=== PATIENT | male | born 1945 | race Caucasian/White ===

== ENCOUNTER 2019-06-03 20:19 | Emergency (ER) | payer MEDICARE, BC ==
--- NOTE | 2019-06-03 20:50 | ED ---
HPI Chest Pain - HPI Summary HPI Summary: The patient is a 74 y/o M presenting to [facility] with a chief complaint of sudden onset stabbing left anterior CP this afternoon. He reports that he was standing up when the pain suddenly began. The pain does not radiate. At time of onset, the pain was rated 7/10 in severity, but now the pain is rated 2/10. The pain is aggravated by deep breathing. He denies nausea, vomiting, diaphoresis, dizziness, and SOB. Hx of HTN, HLD, ND, angioplasty without stents. FHx of HTN and ND. Nonsmoker, occasional EtOH, no substance use. - History of Current Complaint Chief Complaint: EDChestPainROMI Time Seen by Provider: 06/03/19 20:37 Hx Obtained From: Patient Onset/Duration: Started Hours Ago, Still Present Timing: Lasting Hours Initial Severity: Moderate Current Severity: Mild Pain Intensity: 2 Pain Scale Used: 0-10 Numeric Chest Pain Location: Left Anterior Chest Pain Radiates: No Character: Sharp/Stabbing Aggravating Factor(s): Deep Breaths Alleviating Factor(s): Nothing Associated Signs and Symptoms: Positive: Chest Pain. Negative: Dizziness, Shortness of Breath, Diaphoresis, Nausea, Vomiting - Allergy/Home Medications Allergies/Adverse Reactions: Allergies Allergy/AdvReac Type Severity Reaction Status Date / Time No Known Allergies Allergy Verified 06/03/19 20:24 PMH/Surg Hx/FS Hx/Imm Hx Endocrine/Hematology History: Denies: Hx Diabetes Cardiovascular History: Reports: Hx Hypercholesterolemia, Hx Hypertension - Surgical History Surgery Procedure, Year, and Place: angioplasty without stents - Immunization History Date of Tetanus Vaccine: utd Date of Influenza Vaccine: fall 2017 Infectious Disease History: No Infectious Disease History: Denies: Traveled Outside the [place] in Last 30 Days - Family History Known Family History: Positive: Cardiac Disease - ND, Hypertension - Social History Alcohol Use: Rare Hx Substance Use: No Substance Use Type: Reports: None Hx Tobacco Use: No Smoking Status (MU): Never Smoked Tobacco Do You Chew or Dip Tobacco: No Have You Chewed or Dipped Tobacco in the LAST YEAR: No Have You Smoked in the Last Year: No Review of Systems Negative: Skin Diaphoresis Positive: Chest Pain - left anterior Negative: Shortness Of Breath Negative: Vomiting, Nausea Neurological: Other - NEGATIVE: dizziness All Other Systems Reviewed And Are Negative: Yes Physical Exam - Summary Physical Exam Summary: VITAL SIGNS: Reviewed. GENERAL: Patient is a well-developed and nourished male who is lying comfortable in the stretcher. Patient is not in any acute respiratory distress. HEAD AND FACE: No signs of trauma. No ecchymosis, hematomas or skull depressions. No sinus tenderness. EYES: PERRLA, EOMI x 2, No injected conjunctiva, no nystagmus. EARS: Hearing grossly intact. Ear canals and tympanic membranes are within normal limits. MOUTH: Oropharynx within normal limits. NECK: Supple, trachea is midline, no adenopathy, no JVD, no carotid bruit, no c- spine tenderness, neck with full ROM. CHEST: Symmetric. Reproducible chest pain with palpation. LUNGS: Clear to auscultation bilaterally. No wheezing or crackles. CVS: Regular rate and rhythm, S1 and S2 present, no murmurs or gallops appreciated. ABDOMEN: Soft, non-tender. No signs of distention. No rebound, no guarding, and no masses palpated. Bowel sounds are normal. EXTREMITIES: FROM in all major joints, no edema, no cyanosis or clubbing. NEURO: Alert and oriented x 3. No acute neurological deficits. Speech is normal and follows commands. SKIN: Dry and warm. Triage Information Reviewed: Yes Vital Signs On Initial Exam: Initial Vitals Temp Pulse Resp BP Pulse Ox 97.9 F 62 12 147/78 96 06/03/19 20:23 06/03/19 20:23 06/03/19 20:23 06/03/19 20:23 06/03/19 20:23 Vital Signs Reviewed: Yes Diagnostics - Vital Signs Vital Signs Temp Pulse Resp BP Pulse Ox 06/03/19 20:23 97.9 F 62 12 147/78 96 - Laboratory Result Diagrams: 06/03/19 21:10 06/03/19 21:10 Lab Statement: Any lab studies that have been ordered have been reviewed, and results considered in the medical decision making process. - Radiology CXR Radiology Interpretation Completed By: Radiologist Summary of Radiographic Findings: No acute pathology. ED physician has reviewed this report. - EKG 2021 Cardiac Rate: NL - 61 BPM EKG Rhythm: Sinus Rhythm Summary of EKG Findings: No ST elevations. Re-Evaluation - Re-Evaluation First Eval Re-Evaluation Time: 21:45 Comment: I discussed results thus far with the patient. He would like to go home. Chest Pain Course/Dx - Course Assessment/Plan: The patient is a 74 y/o M presenting to [facility] with a chief complaint of sudden onset stabbing left anterior CP this afternoon. He reports that he was standing up when the pain suddenly began. The pain does not radiate. At time of onset, the pain was rated 7/10 in severity, but now the pain is rated 2/10. The pain is aggravated by deep breathing. He denies nausea, vomiting, diaphoresis, dizziness, and SOB. Hx of HTN, HLD, ND, angioplasty without stents. FHx of HTN and ND. Nonsmoker, occasional EtOH, no substance use. Blood tests without any significant abnormality except for slight anemia, troponin of 0.01, and BNP of 133. Patient was given aspirin for the pain. The patients chest pain is sharp and is increased by deep inspiration. The EKG shows no ST elevations. Chest X-ray shows no acute pathology. The patients pain has resolved. Patient is asymptomatic. I wanted to wait for the second troponin after 4 hours; however, the patient doesnt want to wait and see reports since the pain is resolved he wants to be discharged home. Heart score is 3. He understands the benefits and risk of leaving now without the second troponin; however, the patient insists. He reports that if the pain returns, he will return to the emergency room for further workup and management. I discussed all the findings and test results with the patient. Patient was instructed to return to the emergency room immediately if any of the symptoms return worsens. Plan of care was discussed with the patient and understands and agrees. All questions were answered at patient satisfaction. There were no further complaints or concerns. Lung exam before discharge: CTA B/L. Good air exchange. No wheezing or crackles heard. CVS: S1 and S2 present. No murmurs appreciated. Patient is alert and oriented x 3. Patient is hemodynamically stable. Patient will be discharged home with follow up PCP in the next 2-3 days. - Diagnoses Provider Diagnoses: Atypical chest pain Discharge - Sign-Out/Discharge Documenting (check all that apply): Patient Departure - Patient will be discharged home. Patient Received Moderate/Deep Sedation with Procedure: No - Discharge Plan Condition: Stable Disposition: HOME Patient Education Materials: Chest Pain (DC) Referrals: Mamadou Elizondo MD [Primary Care Provider] - 3 Days Additional Instructions: Follow up with your primary care provider in 2-3 days. RETURN TO THE EMERGENCY DEPARTMENT FOR ANY NEW OR WORSENING SYMPTOMS. - Billing Disposition and Condition Condition: STABLE Disposition: Home - Attestation Statements Document Initiated by Chuyita: Yes Documenting Scribe: April Warren Provider For Whom Chuyita is Documenting (Include Credential): Dr. Abel Dickerson MD Scribe Attestation: April Winkler, scribed for Dr. Abel Dickerson MD on 06/03/19 at 2149. Scribe Documentation Reviewed: Yes Provider Attestation: The documentation as recorded by the April bernard accurately reflects the service I personally performed and the decisions made by me, Dr. Abel Dickerson MD Status of Scribe Document: Ready
[2019-06-03 21:17] LABS: ABS Basophils 0.1 10^3/ul (0-0.2); ABS Eosinophils 0.2 10^3/ul (0-0.6); ABS Lymphocytes 3.4 10^3/ul (1.0-4.8); ABS Monocytes 0.7 10^3/ul (0-0.8); ABS Neutrophils 3.4 10^3/ul (1.5-7.7); Eosinophil % 2.4 %; Hematocrit 39 % (42-52); Hemoglobin 13.4 g/dL (14.0-18.0); Lymphocyte % 43.1 %; Mean Corpuscular HGB Conc 34 g/dL (31-36); Mean Corpuscular Hemoglobin 32 pg (27-31); Mean Corpuscular Volume 92 fL (80-94); Mean Platelet Volume 7.7 fL (7.4-10.4); Platelet Count 145 10^3/uL (150-450); Red Blood Count 4.24 10^6 /uL (4.18-5.48); Red Cell Distribution Width 15 % (10-15); White Blood Count 7.8 10^3/uL (3.5-10.8)
[2019-06-03] MEDS ORDERED: Aspirin 81 mg CHEW TAB* 81 MG TAB.CHEW PO ONE (21:33)
[2019-06-03 21:34] LABS: Albumin 3.7 g/dL (3.2-5.2); Albumin/Globulin Ratio 1.5 (1-3); Calcium 8.9 mg/dL (8.6-10.3); EGFR African American 75.4 (>60); EGFR Non-African American 62.3 (>60); Globulin 2.4 g/dL (2-4); Magnesium 1.9 mg/dL (1.9-2.7); Potassium 4.2 mmol/L (3.5-5.0); Total Bilirubin 0.6 mg/dL (0.2-1.0); Total Protein 6.1 g/dL (6.4-8.9)
[2019-06-03 21:36] LABS: Troponin I 0.01 ng/mL (<0.04)
[2019-06-03 21:39] LABS: CKMB ng/mL 2.6 ng/mL (0.6-6.3)
[2019-06-03 21:49] VITALS: BP 120/67
[2019-06-03 21:54] LABS: TSH (Thyroid Stimulating Horm) 1.46 mcIU/mL (0.34-5.60)
== END 2019-06-03 22:01 | disposition home or self-care (01) ==
LOC: ED 20:19
DX: R07.89 Other chest pain (principal)
CPT/HCPCS: 36415; 71045; 80053; 82550; 82553; 83605; 83735; 83880; 84443; 84484; 85025; 85730; 93005; 99283